=== PATIENT | male | born 1995 | race Hispanic/Latino ===

== ENCOUNTER 2020-09-16 11:36 | Emergency (ER) | payer SELFPAY ==
[~2020-09-16] VITALS: Ht 180.3 cm; Wt 110.7 kg
[~2020-09-16 11:36] MED LIST: AUGMENTIN 875-1 EACH PO; NAPROXEN500 MG PO; NORCO 5-325 TA1 EACH PO
--- NOTE | 2020-09-16 17:03 | EKG ---
[facility] [address] [place], [place] [address] Signed Normal sinus rhythm with sinus arrhythmia Minimal voltage criteria for LVH, may be normal variant ST elevation, consider early repolarization, pericarditis, or injury T wave abnormality, consider inferior ischemia Abnormal ECG No previous ECGs available Confirmed by KAILYN DUNN MD ([id number] on 09/16/2020 5:03:04 PM Electronically Signed By: KAILYN DUNN MD 09/16/20 1703 PATIENT NAME: YENNIDEVIKAGENIE Electrocardiogram DATE OF : [birth year] PHYSICIAN: KAILYN DUNN MD REPORT #: [id number] REPORT IS CONFIDENTIAL AND NOT TO BE RELEASED WITHOUT AUTHORIZATION
== END 2020-09-16 12:57 | disposition home or self-care (01) ==
LOC: ED 11:36
DX: F41.9 Anxiety disorder, unspecified (principal)
CPT/HCPCS: 93005; 93010; 99283-25

== ENCOUNTER 2023-01-20 12:23 | Emergency (ER) | payer OTHER, BC ==
[~2023-01-20] VITALS: Ht 180.3 cm; Wt 115.7 kg
[2023-01-20 14:14] VITALS: BP 110/75
== END 2023-01-20 14:17 | disposition home or self-care (01) ==
LOC: ED 12:23
DX: S86.111A Strain of other muscle(s) and tendon(s) of posterior muscle group at lower leg level, right leg, initial encounter (principal); X50.0XXA Overexertion from strenuous movement or load, initial encounter
CPT/HCPCS: 99283